=== PATIENT | female | born 1940 | race Caucasian/White ===

== ENCOUNTER 2018-03-16 11:46 | Emergency (ER) | payer MEDICARE, OTHER ==
[~2018-03-16] VITALS: Ht 167.6 cm; Wt 74.8 kg
[2018-03-16 11:46] VITALS: BP 137/85
[2018-03-16] MEDS ORDERED: DOCUSATE SODIUM LIQ 100 MG/10 ML UDC ONE (13:16)
--- NOTE | 2018-03-16 13:24 | NUR ---
COLACE GIVEN BOTH EAR TO SOFTEN EARWAX ORDERED.
[2018-03-16] MEDS ORDERED: DOCUSATE SODIUM LIQ 100 MG/10 ML UDC NG ONE (13:30)
--- NOTE | 2018-03-16 13:55 | NUR ---
EARWAX REMOVAL DONE BY INSTITUTIONAL RESEARCH DIRECTOR.
--- NOTE | 2018-03-16 14:06 | NUR ---
Patient discharged to home in stable condition. Written and verbal after care instructions given. Patient verbalizes understanding of instruction.
== END 2018-03-16 14:07 | disposition home or self-care (01) ==
LOC: ER 11:47
DX: H61.23 Impacted cerumen, bilateral (principal); F17.200 Nicotine dependence, unspecified, uncomplicated; Z90.89 Acquired absence of other organs
CPT/HCPCS: 69209; 99282; A4606

== ENCOUNTER 2020-03-11 11:21 | Emergency (ER) | payer OTHER ==
[~2020-03-11] VITALS: Ht 167.6 cm; Wt 65.8 kg
--- NOTE | 2020-03-11 11:28 | NUR ---
BIBDAUGHTER FROM HOME TO ER BED 7. AAOX4. NOT IN RESP DISTRESS, BREATHING EVEN AND UNLABORED. AMBULATORY. BROUGHT IN FOR REPORTED SLURRED SPEECH WHILE SHE WAS TALKING TO HER DAUGHTER OVER THE PHONE. UPON ARRIVAL OF HER DAUGTHER TO THE PT'S HOUSE SHE NOTED HER L ARM FLACCID WELL HER FACE. UUPON ARRIVAL NIHSS RESULT WAS 2. ONLY NOTED R OUTER LIP DROOP. MD WAS AT THE BEDSIDE. ORDERS RECEIVED, NOTED AND CARRIED OUT.
[2020-03-11 11:51] LABS: BASOPHILS # (AUTO) 0.1 /CMM (0.0-0.2); BASOPHILS % (AUTO) 0.6 % (0.0-2.0); EOSINOPHILS % (AUTO) 1.4 % (0.0-6.0); HEMATOCRIT 48 % (33-45); HEMOGLOBIN 16.1 g/dL (11.5-14.8); LYMPHOCYTES # (AUTO) 1.5 /CMM (0.8-4.8); MEAN CORPUSCULAR HGB CONC 33 g/dl (31.0-36.0); MEAN CORPUSCULAR VOLUME 94 fL (82-100); MONOCYTES # (AUTO) 0.6 /CMM (0.1-1.30); MONOCYTES % (AUTO) 7.1 % (2.0-12.0); NEUTROPHILS # (AUTO) 6.7 /CMM (1.8-8.9); NEUTROPHILS % (AUTO) 73.9 % (43.0-81.0); PLATELET COUNT (AUTO) 268 /CMM (150-450); RED BLOOD CELL COUNT(AUTO) 5.11 MIL/uL (4.0-5.2); WHITE BLOOD COUNT (AUTO) 9.1 K/uL (4.3-11.0)
[2020-03-11 12:04] LABS: ALANINE AMINOTRANSFERASE 30 U/L (12-78); ALBUMIN 3.8 g/dL (3.4-5.0); ALKALINE PHOSPHATASE 102 U/L (46-116); ASPARTATE AMINOTRANSFERASE 50 U/L (15-37); BILIRUBIN,TOTAL 0.5 mg/dL (0.2-1.0); CALCIUM, SERUM 9.3 mg/dL (8.5-10.1); CARBON DIOXIDE 30 mmol/L (21-32); CREATININE 0.9 mg/dL (0.6-1.3); GLUCOSE 98 mg/dL (74-106); TOTAL PROTEIN, SERUM 8.5 g/dL (6.4-8.2); UREA NITROGEN, BLOOD 20 mg/dL (7-18)
[2020-03-11] MEDS ORDERED: MULT-447 PO (12:13)
[2020-03-11 12:34] LABS: CHLORIDE 105 mmol/L (98-107); POTASSIUM 4.2 mmol/L (3.5-5.1); SODIUM SERUM 139 mmol/L (136-145)
--- NOTE | 2020-03-11 12:38 | NUR ---
PT AMBULATED TO BATHROOM WITH SBA
--- NOTE | 2020-03-11 14:24 | NUR ---
TRANSPORT TO [facility] ETA 20 [place] FAX INFO TO [phone]. [place]
[2020-03-11] MEDS ORDERED: CLOPIDOGREL BISULFATE 300 MG TABLET PO ONE (14:30)
[2020-03-11] MEDS ORDERED: ASPIRIN 325 MG TABLET PO ONE (14:30)
--- NOTE | 2020-03-11 14:40 | NUR ---
AROLDO POWELL CALLED PT GOING DIRECTLY TO TREATMENT MANAGER [phone] VINAY HUNTER.
--- NOTE | 2020-03-11 14:44 | NUR ---
REPORT GIVEN TO VINAY SNELL AT [facility]
[2020-03-11] MEDS ORDERED: CLOPIDOGREL BISULFATE 75 MG TABLET ONE (14:47)
[2020-03-11] MEDS ORDERED: ASPIRIN 325 MG TABLET ONE (14:47)
--- NOTE | 2020-03-11 14:47 | NUR ---
TRANSF[facility] CALL FAX COVID RESULT TO [phone] ty
[2020-03-11 14:51] VITALS: BP 148/73
--- NOTE | 2020-03-11 14:58 | NUR ---
REPORT GIVEN TO VINAY HURTADO OF [facility] [place] [facility] FOR TRANSPORT TO [facility]
--- NOTE | 2020-03-11 15:17 | NUR ---
PT LEFT ON [facility] WITH RN AND 2 AMBULANCE STAFF FOR TRANSPORT TO [facility] HUMAN RESOURCES OFFICE ASSISTANT. REPORT GIVEN TO VINAY HURTADO OF CRITICAL CARE TRANSPORT.
--- NOTE | 2020-03-11 15:23 | NUR ---
REPORT GIVEN TO VINAY ANG AT THE [facility]
[2020-03-11 16:06] LABS: CHOLESTEROL 230 mg/dL (<200); HDL CHOLESTEROL 76 mg/dL (40-60); LDL 143 mg/dL (0-99); TRIGLYCERIDES 80 mg/dL (30-150)
== END 2020-03-11 15:17 | disposition short-term general hospital (02) ==
LOC: ER 11:34
DX: I63.031 Cerebral infarction due to thrombosis of right carotid artery (principal); R47.81 Slurred speech; R29.810 Facial weakness; R29.702 NIHSS score 2; Z20.822 Contact with and (suspected) exposure to COVID-19
CPT/HCPCS: 36415; 70450-TC; 70496-TC; 70498-TC; 80048-TC; 80061-TC; 80076-TC; 82962-TC; 84484-TC; 85025-TC; 85730-TC; C9803

== ENCOUNTER 2021-06-18 10:45 | Emergency (ER) | payer MEDICARE, BC ==
[~2021-06-18] VITALS: Ht 167.6 cm; Wt 70.3 kg
[~2021-06-18 10:45] MED LIST: MULT-447 PO
--- NOTE | 2021-06-18 10:48 | NUR ---
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 PT HAD A SEIZURE THAT LASTED <5 MINS PER EMS, NO ORAL TRAUMA/INJURY NOTED. PT DENIES PAIN, A&OX4. VITALS ARE WITHIN LIMITS, NO RESP DISTRESS NOTED.
[2021-06-18] MEDS ORDERED: CLOP75TA15 PO (10:55)
[2021-06-18] MEDS ORDERED: CARV6.252 PO (10:55)
[2021-06-18] MEDS ORDERED: ROSU10TA29 PO (10:55)
--- NOTE | 2021-06-18 11:03 | NUR ---
DR HAQUE AT BEDSIDE FOR EVAL.
--- NOTE | 2021-06-18 11:54 | NUR ---
DR HAQUE AT BEDSIDE TALKING TO PT'S FAMILY
--- NOTE | 2021-06-18 12:09 | NUR ---
IV removed. Catheter intact and site benign. Pressure and 4x4 applied to site. No bleeding noted.Patient discharged to home in stable condition with family. Written and verbal after care instructions given. Patient verbalizes understanding of instruction.
[2021-06-18 12:10] VITALS: BP 129/76
== END 2021-06-18 12:11 | disposition home or self-care (01) ==
LOC: ER 10:54
DX: G40.909 Epilepsy, unspecified, not intractable, without status epilepticus (principal); Z86.69 Personal history of other diseases of the nervous system and sense organs; Z87.39 Personal history of other diseases of the musculoskeletal system and connective tissue; Z79.899 Other long term (current) drug therapy

== ENCOUNTER 2022-02-08 09:04 | Outpatient (CLI) | payer MEDICARE, BC ==
[~2022-02-08 09:04] MED LIST changes: +CARV6.252 PO; +CLOP75TA15 PO; +ROSU10TA29 PO
== END 2022-02-08 23:59 | disposition home or self-care (01) ==
LOC: WOU 09:04
PROVIDERS: ATTEND Podiatrist Foot & Ankle Surgery
DX: L60.2 Onychogryphosis (principal); B35.1 Tinea unguium; L84 Corns and callosities; M79.672 Pain in left foot; M79.671 Pain in right foot; R60.0 Localized edema; I10 Essential (primary) hypertension; Z86.73 Personal history of transient ischemic attack (TIA), and cerebral infarction without residual deficits; Z79.82 Long term (current) use of aspirin
CPT/HCPCS: G0463

== ENCOUNTER 2022-03-22 09:24 | Outpatient (CLI) | payer MEDICARE, BC | END 2022-03-22 23:59 | disposition home or self-care (01) | LOC: WOU 09:24 | PROVIDERS: ATTEND Podiatrist Foot & Ankle Surgery | DX: S90.32XA Contusion of left foot, initial encounter (principal); W22.8XXA Striking against or struck by other objects, initial encounter; Y92.89 Other specified places as the place of occurrence of the external cause; Z86.73 Personal history of transient ischemic attack (TIA), and cerebral infarction without residual deficits; L60.2 Onychogryphosis; B35.1 Tinea unguium; R60.0 Localized edema; M79.672 Pain in left foot; Z87.81 Personal history of (healed) traumatic fracture; Z79.82 Long term (current) use of aspirin; Z79.02 Long term (current) use of antithrombotics/antiplatelets | CPT/HCPCS: 73630; G0463 ==

== ENCOUNTER 2022-05-17 09:28 | Outpatient (CLI) | payer MEDICARE, BC | END 2022-05-17 23:59 | disposition home or self-care (01) | LOC: WOU 09:28 | PROVIDERS: ATTEND Podiatrist Foot & Ankle Surgery | DX: M72.2 Plantar fascial fibromatosis (principal); R60.0 Localized edema; L60.2 Onychogryphosis; M79.672 Pain in left foot; M79.671 Pain in right foot; B35.1 Tinea unguium; Z79.82 Long term (current) use of aspirin | CPT/HCPCS: G0463 ==

== ENCOUNTER 2022-12-14 04:38 | Emergency (ER) | payer MEDICARE, BC ==
[~2022-12-14] VITALS: Ht 165.1 cm; Wt 77.1 kg
[2022-12-14 04:47] VITALS: TEMP 97.6
[2022-12-14 05:30] VITALS: BP 122/74; O2SAT 98
[2022-12-14] MEDS ORDERED: IV NS 0.9% 500 ML IV ONE (05:30)
[2022-12-14 05:35] LABS: CALCIUM, SERUM 8.6 mg/dL (8.5-10.1); CREATININE 1.3 mg/dL (0.6-1.3); POTASSIUM 3.8 mmol/L (3.5-5.1)
[2022-12-14 05:43] LABS: BASOPHILS # (AUTO) 0.1 K/uL (0.0-0.2); BASOPHILS % (AUTO) 0.7 % (0.0-2.0); EOSINOPHILS # (AUTO) 0.2 K/uL (0.0-0.7); EOSINOPHILS % (AUTO) 1.9 % (0.0-6.0); HEMATOCRIT 43 % (33-45); LYMPHOCYTES # (AUTO) 2.3 K/uL (0.8-4.8); LYMPHOCYTES % (AUTO) 28.1 % (20.0-44.0); MEAN CORPUSCULAR HEMOGLOBIN 30 PG (26.0-33.0); MEAN CORPUSCULAR HGB CONC 33 g/dl (31.0-36.0); MEAN CORPUSCULAR VOLUME 92 fL (82-100); MONOCYTES # (AUTO) 0.6 K/uL (0.1-1.30); MONOCYTES % (AUTO) 7.6 % (2.0-12.0); NEUTROPHILS % (AUTO) 61.7 % (43.0-81.0); PLATELET COUNT (AUTO) 240 K/uL (150-450); RED CELL DISTRIBUTION WIDTH 14.1 % (11.5-15.0)
== END 2022-12-14 07:30 | disposition left against medical advice (07) ==
LOC: ER 04:40
DX: R56.9 Unspecified convulsions (principal); Z79.899 Other long term (current) drug therapy
CPT/HCPCS: 99283; 85025; 80048; 36415; 82962; J7040